=== PATIENT | female | born 1965 | race African-American/Black ===

== ENCOUNTER 2016-10-15 21:46 | Emergency (ER) | payer OTHER ==
[~2016-10-15] VITALS: Ht 167.6 cm; Wt 71.4 kg
[~2016-10-15 21:46] MED LIST: ALPRAZOLAM0.5 MG PO; ALTACE10 MG PO; AMLODIPINE BESY10 MG PO; ASPIR-LOW81 MG PO; ASPIRIN81 M1 PO; Aspirin Ec PO; BENZTROPINE MESY1 MG PO; CELEXA20 MG PO; CLONIDINE HCL0.2 MG PO; COMBIVENT RESPIM4 GM IH; COMBIVENT200 INHALA IH; CORTISPORIN-TC10 M1 LEFT EAR; CYCLOBENZAPRINE10 MG PO; DIABETES PILL; DULOXETINE HCL60 MG PO; EPZICOM1 TABLET; EPZICOM1 TABLET PO; Ecotrin PO; FAMOTIDINE20 MG PO; FLEXERIL10 MG PO; GLIPIZIDE-METF1 EACH PO; GLUCAGEN1 MG IM/SC; HUMALOG100 UNIT/1 SC; HUMALOG100 UNIT/2 SC; HUMALOG100 UNIT/2 SQ; HUMALOG100 UNITS/ SC; HUMULIN N100 UNIT/1 SC; HYDROCODON-ACE1 EAC8 PO; HYDROCODON-ACE1 EAC9 PO; INDERAL40 MG PO; ISENTRESS400 MG PO; LANTUS 3 M100 UNITS/ SC; LANTUS 3 M100 UNITS1 SC; LANTUS100 UNIT/1 SQ; LANTUS100 UNIT/2 SQ; LIPITOR10 MG PO; LOW DOSE ASPIRI81 M1 PO; MEDROL DOSEPAK4 MG PO; MIRTAZAPINE30 MG PO; MOBIC15 MG PO; NAPROSYN500 MG PO; NEURONTIN100 MG PO; NITROSTAT0.4 MG SL; NOVOLOG PE100 UNITS/ SC; QUETIAPINE FUM100 MG PO; QUETIAPINE FUMA25 MG PO; RAMIPRIL10 MG PO; TRUVADA1 TABLET PO; TYLENOL EXTRA500 MG PO; [UNRECOGNIZED DRUG - CODE] PO
[2016-10-15 22:07] LABS: HEMATOCRIT 33.5 % (36.0-46.0); MCH 27.1 PG (29.0-34.0); MCHC 33.4 G/DL (30.0-36.0); MCV 80.9 FL (83-99); MEAN PLAT.VOLUME 10.4 uM^3 (9.5-12.4); PLATELET COUNT 318 K/uL (156-360); RBC DIS.WIDTH-CV 13.5 % (11.8-14.6); RBC DIS.WIDTH-SD 38.2 % (39-53); RED BLOOD COUNT 4.14 M/uL (3.80-5.20); WHITE BLOOD COUNT 5.6 K/uL (4.1-10.2)
[2016-10-15 22:15] LABS: CHLORIDE 95 mEq/L (99-109); POTASSIUM 3.8 mEq/L (3.7-5.4); SODIUM 133 mEq/L (136-147)
[2016-10-15 22:18] LABS: ANION GAP 15 MEQ/L (2-14)
[2016-10-15 22:19] LABS: TOTAL BILIRUBIN 0.3 mg/dL (0.0-1.0)
[2016-10-15 22:21] LABS: ALKALINE PHOSPHATASE 88 IU/L (3-129); GFR ESTIMATE (CALCULATED) > 59 mL/min/
[2016-10-15 22:22] LABS: UREA NITROGEN (BUN) 13 mg/dL (9-23)
[2016-10-15 22:26] LABS: GLUCOSE 550 mg/dL (70-99)
[2016-10-15 22:32] LABS: QUANTITATIVE HCG < 4.0 MIU/ML
[2016-10-15 22:37] LABS: ADD MIUA? NO; BILIRUBIN NEGATIVE; BLOOD NEGATIVE; COLOR YELLOW ((YELLOW)); GLUCOSE (STRIP) >=1000; KETONES NEGATIVE; LEUKOCYTES NEGATIVE; NITRITE NEGATIVE; PROTEIN (STRIP) TRACE; SPECIFIC GRAVITY 1.043 (1.000-1.030); UCUL ADDED? NO; UROBILINOGEN 0.2 MG/DL (0.2-1.0)
[2016-10-16 01:13] LABS: POINT-OF-CARE METER ID UU14100415
[2016-10-16] MEDS ORDERED: CARAFATE1 GM PO (01:17)
[2016-10-16] MEDS ORDERED: ZOFRAN ODT8 MG PO (01:17)
[2016-10-16] MEDS ORDERED: PRILOSEC20 MG PO (01:17)
[2016-10-16 01:49] VITALS: BP 149/90
== END 2016-10-16 01:55 | disposition home or self-care (01) ==
LOC: EME 21:46
PROVIDERS: Emergency Medicine
DX: K29.70 Gastritis, unspecified, without bleeding (principal); E11.65 Type 2 diabetes mellitus with hyperglycemia; I10 Essential (primary) hypertension; Z21 Asymptomatic human immunodeficiency virus [HIV] infection status
CPT/HCPCS: 76705; 80053; 81003; 82948; 84702; 85027; 99281; 99285; J1170; J2405; J7030; S0028

== ENCOUNTER 2016-12-27 00:10 | Emergency (ER) | payer OTHER ==
[~2016-12-27] VITALS: Ht 167.6 cm; Wt 72.3 kg
[~2016-12-27 00:10] MED LIST changes: +CARAFATE1 GM PO; +PRILOSEC20 MG PO; +ZOFRAN ODT8 MG PO
[2016-12-27 00:51] LABS: HEMATOCRIT 32.3 % (36.0-46.0); MCH 26.2 PG (29.0-34.0); MCHC 31.6 G/DL (30.0-36.0); MEAN PLAT.VOLUME 10.5 uM^3 (9.5-12.4); PLATELET COUNT 260 K/uL (156-360); RBC DIS.WIDTH-CV 15.2 % (11.8-14.6); RBC DIS.WIDTH-SD 46.1 % (39-53); RED BLOOD COUNT 3.89 M/uL (3.80-5.20); WHITE BLOOD COUNT 4.6 K/uL (4.1-10.2)
[2016-12-27 01:01] LABS: CHLORIDE 104 mEq/L (99-109); POTASSIUM 3.5 mEq/L (3.7-5.4); SODIUM 138 mEq/L (136-147)
[2016-12-27 01:04] LABS: ANION GAP 9 MEQ/L (2-14)
[2016-12-27 01:07] LABS: GFR ESTIMATE (CALCULATED) > 59 mL/min/; UREA NITROGEN (BUN) 14 mg/dL (9-23)
[2016-12-27 01:13] LABS: TROP-I INTERPRETATION NEGATIVE; TROPONIN-I < 0.01 ng/mL (0.0-0.30)
[2016-12-27 01:31] LABS: GLUCOSE 274 mg/dL (70-99)
[2016-12-27 01:42] LABS: D-DIMER ELISA 0.44 mg/L FEU (< 0.57)
[2016-12-27] MEDS ORDERED: VENTOLIN HFA18 GM IH (02:29)
[2016-12-27] MEDS ORDERED: AZITHROMYCIN250 MG PO (02:29)
[2016-12-27 03:00] LABS: TROP-I INTERPRETATION NEGATIVE; TROPONIN-I < 0.01 ng/mL (0.0-0.30)
[2016-12-27 03:32] VITALS: BP 143/91
== END 2016-12-27 03:33 | disposition home or self-care (01) ==
LOC: EME 00:10
PROVIDERS: Emergency Medicine
DX: R07.9 Chest pain, unspecified (principal); J18.9 Pneumonia, unspecified organism; B20 Human immunodeficiency virus [HIV] disease; I10 Essential (primary) hypertension; M79.604 Pain in right leg; M79.605 Pain in left leg; R00.0 Tachycardia, unspecified; E11.9 Type 2 diabetes mellitus without complications; Z86.14 Personal history of Methicillin resistant Staphylococcus aureus infection
CPT/HCPCS: 71020; 80048; 84484; 85027; 85379; 93005; 99281; 99284

== ENCOUNTER 2017-01-24 21:19 | Emergency (ER) | payer OTHER ==
[~2017-01-24] VITALS: Ht 167.6 cm; Wt 75.7 kg
[~2017-01-24 21:19] MED LIST changes: +AZITHROMYCIN250 MG PO; +VENTOLIN HFA18 GM IH
[2017-01-24 22:04] LABS: MCH 26.2 PG (29.0-34.0); MCHC 31.5 G/DL (30.0-36.0); MCV 83.1 FL (83-99); PLATELET COUNT 302 K/uL (156-360); RBC DIS.WIDTH-CV 14.7 % (11.8-14.6); RBC DIS.WIDTH-SD 44.4 % (39-53); RED BLOOD COUNT 3.97 M/uL (3.80-5.20); WHITE BLOOD COUNT 7.1 K/uL (4.1-10.2)
[2017-01-24 22:13] LABS: CHLORIDE 107 mEq/L (99-109); POTASSIUM 3.6 mEq/L (3.7-5.4); SODIUM 142 mEq/L (136-147)
[2017-01-24 22:15] LABS: GLUCOSE 104 mg/dL (70-99)
[2017-01-24 22:16] LABS: ANION GAP 12 MEQ/L (2-14)
[2017-01-24 22:18] LABS: GFR ESTIMATE (CALCULATED) > 59 mL/min/
[2017-01-24 22:19] LABS: UREA NITROGEN (BUN) 17 mg/dL (9-23)
[2017-01-24 22:35] LABS: TROP-I INTERPRETATION NEGATIVE; TROPONIN-I < 0.01 ng/mL (0.0-0.30)
[2017-01-24] MEDS ORDERED: ATARAX,VISTARIL25 MG PO (23:04)
[2017-01-24 23:32] VITALS: BP 134/85
== END 2017-01-24 23:33 | disposition home or self-care (01) ==
LOC: EME → EDBD 21:19 → EME 23:33
PROVIDERS: Emergency Medicine
DX: E11.649 Type 2 diabetes mellitus with hypoglycemia without coma (principal); F31.9 Bipolar disorder, unspecified; K21.9 Gastro-esophageal reflux disease without esophagitis; J45.909 Unspecified asthma, uncomplicated; F41.9 Anxiety disorder, unspecified; R06.02 Shortness of breath; R07.9 Chest pain, unspecified; Z21 Asymptomatic human immunodeficiency virus [HIV] infection status; Z79.4 Long term (current) use of insulin
CPT/HCPCS: 71010; 80048; 84484; 85027; 93005; 99281; 99284; J2060

== ENCOUNTER 2017-03-11 02:28 | Emergency (ER) | payer OTHER ==
[~2017-03-11] VITALS: Ht 167.6 cm; Wt 74.8 kg
[~2017-03-11 02:28] MED LIST changes: +ATARAX,VISTARIL25 MG PO
[2017-03-11 02:57] LABS: HEMATOCRIT 28.9 % (36.0-46.0); MCH 26.5 PG (29.0-34.0); MCHC 31.8 G/DL (30.0-36.0); MCV 83.3 FL (83-99); MEAN PLAT.VOLUME 9.9 uM^3 (9.5-12.4); PLATELET COUNT 260 K/uL (156-360); RBC DIS.WIDTH-CV 14.5 % (11.8-14.6); RBC DIS.WIDTH-SD 43.8 % (39-53); RED BLOOD COUNT 3.47 M/uL (3.80-5.20); WHITE BLOOD COUNT 5.4 K/uL (4.1-10.2)
[2017-03-11 03:07] LABS: CHLORIDE 105 mEq/L (99-109); POTASSIUM 3.5 mEq/L (3.7-5.4); SODIUM 138 mEq/L (136-147)
[2017-03-11 03:09] LABS: GLUCOSE 177 mg/dL (70-99)
[2017-03-11 03:10] LABS: ANION GAP 10 MEQ/L (2-14)
[2017-03-11 03:13] LABS: GFR ESTIMATE (CALCULATED) > 59 mL/min/
[2017-03-11 03:14] LABS: UREA NITROGEN (BUN) 13 mg/dL (9-23)
[2017-03-11 03:17] LABS: TROP-I INTERPRETATION NEGATIVE; TROPONIN-I < 0.01 ng/mL (0.0-0.30)
[2017-03-11] MEDS ORDERED: FIORICET,ESG1 TABLET PO (05:19)
[2017-03-11 05:41] VITALS: BP 150/90
== END 2017-03-11 05:42 | disposition home or self-care (01) ==
LOC: EME 02:28
DX: I10 Essential (primary) hypertension (principal); R51 Headache; M79.89 Other specified soft tissue disorders; R00.0 Tachycardia, unspecified; E11.9 Type 2 diabetes mellitus without complications; Z79.84 Long term (current) use of oral hypoglycemic drugs; Z21 Asymptomatic human immunodeficiency virus [HIV] infection status; Z86.14 Personal history of Methicillin resistant Staphylococcus aureus infection
CPT/HCPCS: 70450; 71020; 80048; 83880; 84484; 85027; 93005; 99281; 99284

== ENCOUNTER 2017-07-19 23:25 | Emergency (ER) | payer OTHER ==
[~2017-07-19] VITALS: Ht 167.6 cm; Wt 79.8 kg
[~2017-07-19 23:25] MED LIST changes: +FIORICET,ESG1 TABLET PO
[2017-07-20 00:06] LABS: EOSINOPHIL (%) 0.5 % (0-5); EOSINOPHIL COUNT 0.1 K/uL (0-0.3); HEMATOCRIT 27.5 % (36.0-46.0); IMMATURE GRANULOCYTE (%) 0.5 % (0.0-0.7); IMMATURE GRANULOCYTE COUNT 0.1 K/uL; INSTRUMENT ABS NEUTROPHIL CT 12.2 K/uL; LYMPHOCYTE COUNT 0.7 K/uL (1.0-2.8); MCH 25.7 PG (29.0-34.0); MCHC 31.6 G/DL (30.0-36.0); MCV 81.1 FL (83-99); MEAN PLAT.VOLUME 9.9 uM^3 (9.5-12.4); MONOCYTE (%) 7.4 % (3-12); NEUTROPHIL (%) 86.2 % (45-76); NEUTROPHIL COUNT 12.2 K/uL (1.8-6.4); PLATELET COUNT 281 K/uL (156-360); RBC DIS.WIDTH-CV 14.9 % (11.8-14.6); RBC DIS.WIDTH-SD 44.8 % (39-53); RED BLOOD COUNT 3.39 M/uL (3.80-5.20); WHITE BLOOD COUNT 14.1 K/uL (4.1-10.2)
[2017-07-20 00:14] LABS: CHLORIDE 105 mEq/L (99-109); POTASSIUM 3.7 mEq/L (3.7-5.4); SODIUM 138 mEq/L (136-147)
[2017-07-20 00:16] LABS: GLUCOSE 241 mg/dL (70-99)
[2017-07-20 00:18] LABS: ANION GAP 12 MEQ/L (2-14); TOTAL BILIRUBIN 0.2 mg/dL (0.0-1.0)
[2017-07-20 00:20] LABS: ALKALINE PHOSPHATASE 58 IU/L (3-129); GFR ESTIMATE (CALCULATED) > 59 mL/min/
[2017-07-20 00:21] LABS: UREA NITROGEN (BUN) 16 mg/dL (9-23)
[2017-07-20 00:24] LABS: LIPASE 30 U/L (1.0-51.0)
[2017-07-20] MEDS ORDERED: ZOFRAN4 MG PO (02:10)
[2017-07-20 02:51] VITALS: BP 128/80
[2017-07-20 09:35] LABS: POINT-OF-CARE METER ID UU13113702
== END 2017-07-20 02:52 | disposition home or self-care (01) ==
LOC: EME → EDBD 23:25 → EME 07-20 02:52
PROVIDERS: Emergency Medicine
DX: K52.9 Noninfective gastroenteritis and colitis, unspecified (principal); E11.65 Type 2 diabetes mellitus with hyperglycemia; D64.9 Anemia, unspecified; E87.2 Acidosis; Z79.84 Long term (current) use of oral hypoglycemic drugs; J45.909 Unspecified asthma, uncomplicated; K21.9 Gastro-esophageal reflux disease without esophagitis; Z21 Asymptomatic human immunodeficiency virus [HIV] infection status; Z87.891 Personal history of nicotine dependence
CPT/HCPCS: 74177; 80053; 81003; 82948; 83605; 83690; 85025; 99281; 99285; J2405; J7030

== ENCOUNTER 2017-07-22 21:29 | Emergency (ER) | payer OTHER ==
[~2017-07-22] VITALS: Ht 167.6 cm; Wt 72.0 kg
[~2017-07-22 21:29] MED LIST changes: +ZOFRAN4 MG PO
[2017-07-22 22:26] LABS: HEMATOCRIT 26.8 % (36.0-46.0); MCH 25.6 PG (29.0-34.0); MCHC 31.7 G/DL (30.0-36.0); MCV 80.7 FL (83-99); MEAN PLAT.VOLUME 10.2 uM^3 (9.5-12.4); PLATELET COUNT 291 K/uL (156-360); RBC DIS.WIDTH-CV 14.8 % (11.8-14.6); RBC DIS.WIDTH-SD 43.8 % (39-53); RED BLOOD COUNT 3.32 M/uL (3.80-5.20); WHITE BLOOD COUNT 10.6 K/uL (4.1-10.2)
[2017-07-22 22:36] LABS: CHLORIDE 105 mEq/L (99-109); POTASSIUM 3.5 mEq/L (3.7-5.4); SODIUM 141 mEq/L (136-147)
[2017-07-22 22:38] LABS: GLUCOSE 160 mg/dL (70-99)
[2017-07-22 22:39] LABS: ANION GAP 12 MEQ/L (2-14)
[2017-07-22 22:40] LABS: TOTAL BILIRUBIN 0.2 mg/dL (0.0-1.0)
[2017-07-22 22:41] LABS: ALKALINE PHOSPHATASE 63 IU/L (3-129)
[2017-07-22 22:42] LABS: GFR ESTIMATE (CALCULATED) > 59 mL/min/
[2017-07-22 22:43] LABS: UREA NITROGEN (BUN) 14 mg/dL (9-23)
[2017-07-22 22:45] LABS: LIPASE 33 U/L (1.0-51.0)
[2017-07-22 22:47] LABS: TROP-I INTERPRETATION NEGATIVE; TROPONIN-I < 0.01 ng/mL (0.0-0.30)
[2017-07-22 22:51] LABS: QUANTITATIVE HCG < 4.0 MIU/ML
[2017-07-23] MEDS ORDERED: FLAGYL500 MG PO (00:29)
[2017-07-23] MEDS ORDERED: ZOFRAN4 MG PO (00:29)
[2017-07-23] MEDS ORDERED: CIPRO500 MG PO (00:29)
[2017-07-23 01:15] VITALS: BP 160/87
[2017-07-23 01:58] LABS: IRON 15 MCG/DL (35-150)
[2017-07-23 08:21] LABS: FERRITIN 6 NG/ML (10-291)
== END 2017-07-23 01:16 | disposition home or self-care (01) ==
LOC: EME 21:29
PROVIDERS: Emergency Medicine
DX: K52.9 Noninfective gastroenteritis and colitis, unspecified (principal); R10.11 Right upper quadrant pain; E11.9 Type 2 diabetes mellitus without complications; Z79.84 Long term (current) use of oral hypoglycemic drugs; N28.1 Cyst of kidney, acquired; Z98.51 Tubal ligation status; M47.817 Spondylosis without myelopathy or radiculopathy, lumbosacral region; D64.9 Anemia, unspecified; I10 Essential (primary) hypertension; B20 Human immunodeficiency virus [HIV] disease; Z86.14 Personal history of Methicillin resistant Staphylococcus aureus infection; Z87.891 Personal history of nicotine dependence
CPT/HCPCS: 74176; 76705; 80053; 81003; 82728; 83540; 83605; 83690; 84466; 84484; 84702; 85027; 86850; 86900; 86901; 93005; 99281; 99284; J2270; J2405; J7030

== ENCOUNTER 2017-08-30 02:46 | Emergency (ER) | payer OTHER ==
[~2017-08-30] VITALS: Ht 167.6 cm; Wt 71.1 kg
[~2017-08-30 02:46] MED LIST changes: +CIPRO500 MG PO; +FLAGYL500 MG PO
[2017-08-30 04:00] LABS: HEMATOCRIT 25.2 % (36.0-46.0); MCH 26.3 PG (29.0-34.0); MCHC 32.5 G/DL (30.0-36.0); MCV 80.8 FL (83-99); PLATELET COUNT 213 K/uL (156-360); RBC DIS.WIDTH-CV 16.9 % (11.8-14.6); RBC DIS.WIDTH-SD 49.6 % (39-53); RED BLOOD COUNT 3.12 M/uL (3.80-5.20); WHITE BLOOD COUNT 5.1 K/uL (4.1-10.2)
[2017-08-30 04:11] LABS: CHLORIDE 107 mEq/L (99-109); POTASSIUM 3.6 mEq/L (3.7-5.4); SODIUM 138 mEq/L (136-147)
[2017-08-30 04:13] LABS: GLUCOSE 208 mg/dL (70-99)
[2017-08-30 04:14] LABS: ANION GAP 9 MEQ/L (2-14)
[2017-08-30 04:16] LABS: GFR ESTIMATE (CALCULATED) > 59 mL/min/
[2017-08-30 04:17] LABS: UREA NITROGEN (BUN) 18 mg/dL (9-23)
[2017-08-30 04:19] LABS: ADD MIUA? YES; BILIRUBIN NEGATIVE; BLOOD NEGATIVE; COLOR YELLOW ((YELLOW)); GLUCOSE (STRIP) >=500; KETONES NEGATIVE; LEUKOCYTES MODERATE; NITRITE NEGATIVE; PROTEIN (STRIP) 100; SPECIFIC GRAVITY 1.025 (1.000-1.030); UROBILINOGEN 0.2 MG/DL (0.2-1.0)
[2017-08-30 04:37] LABS: BACTERIA 1+ /HPF; EPITHELIAL CELLS 2+ /HPF; MUCUS 4+ /LPF; UCUL ADDED? YES; WHITE BLOOD CELLS 20-30 /HPF (0-5)
[2017-08-30] MEDS ORDERED: BACTRIM,SEPT1 TABLET PO (04:42)
[2017-08-30 05:17] VITALS: BP 135/89
== END 2017-08-30 05:18 | disposition home or self-care (01) ==
LOC: EME 02:46
PROVIDERS: Physician Assistant
DX: M54.9 Dorsalgia, unspecified (principal); N39.0 Urinary tract infection, site not specified; E11.9 Type 2 diabetes mellitus without complications; K21.9 Gastro-esophageal reflux disease without esophagitis; J45.909 Unspecified asthma, uncomplicated; B20 Human immunodeficiency virus [HIV] disease; D64.9 Anemia, unspecified; F31.9 Bipolar disorder, unspecified; F41.9 Anxiety disorder, unspecified; Z79.84 Long term (current) use of oral hypoglycemic drugs; Z87.891 Personal history of nicotine dependence
CPT/HCPCS: 80048; 81003; 85027; 87086; 99281; 99284; J1885

== ENCOUNTER 2017-12-17 20:18 | Emergency (ER) | payer OTHER ==
[~2017-12-17] VITALS: Ht 167.6 cm; Wt 72.9 kg
[~2017-12-17 20:18] MED LIST changes: +BACTRIM,SEPT1 TABLET PO
[2017-12-17 23:36] VITALS: BP 138/84
== END 2017-12-17 23:40 | disposition home or self-care (01) ==
LOC: EME 20:18
DX: S90.425A Blister (nonthermal), left lesser toe(s), initial encounter (principal); E11.9 Type 2 diabetes mellitus without complications; I10 Essential (primary) hypertension; Z79.4 Long term (current) use of insulin
CPT/HCPCS: 73630; 99281; 99283

== ENCOUNTER 2018-01-29 23:26 | Emergency (ER) | payer OTHER ==
[~2018-01-29] VITALS: Ht 167.6 cm; Wt 70.9 kg
[2018-01-29 23:30] VITALS: BP 152/95
== END 2018-01-30 00:23 | disposition home or self-care (01) ==
LOC: EME 23:26
DX: G89.18 Other acute postprocedural pain (principal); M79.672 Pain in left foot; Z98.890 Other specified postprocedural states
CPT/HCPCS: 99281; 99284

== ENCOUNTER 2018-02-25 01:26 | Emergency (ER) | payer OTHER ==
[~2018-02-25] VITALS: Ht 167.6 cm; Wt 69.9 kg
[2018-02-25 02:43] LABS: BASOPHIL (%) 0.6 % (0-1); EOSINOPHIL COUNT 0.2 K/uL (0-0.3); HEMATOCRIT 28.8 % (36.0-46.0); HEMOGLOBIN 9.9 G/DL (11.9-15.5); IMMATURE GRANULOCYTE (%) 0.4 % (0.0-0.7); LYMPHOCYTE COUNT 1.5 K/uL (1.0-2.8); MCH 32.2 PG (29.0-34.0); MCHC 34.4 G/DL (30.0-36.0); MCV 93.8 FL (83-99); MONOCYTE COUNT 0.7 K/uL (0-0.8); NEUTROPHIL COUNT 2.4 K/uL (1.8-6.4); PLATELET COUNT 198 K/uL (156-360); RBC DIS.WIDTH-CV 13.6 % (11.8-14.6); RBC DIS.WIDTH-SD 46.4 % (39-53); RED BLOOD COUNT 3.07 M/uL (3.80-5.20); WHITE BLOOD COUNT 4.8 K/uL (4.1-10.2)
[2018-02-25 02:58] LABS: ALBUMIN 3.8 g/dL (3.2-4.8); CHLORIDE 107 mEq/L (99-109); POTASSIUM 3.6 mEq/L (3.7-5.4); SODIUM 139 mEq/L (136-147)
[2018-02-25 03:00] LABS: GLUCOSE 169 mg/dL (70-99)
[2018-02-25 03:01] LABS: TOTAL PROTEIN 7.3 g/dL (6.4-8.3)
[2018-02-25 03:02] LABS: TOTAL BILIRUBIN 0.3 mg/dL (0.0-1.0)
[2018-02-25 03:04] LABS: ALKALINE PHOSPHATASE 47 IU/L (3-129); CREATININE 0.8 mg/dL (0.6-1.3); GFR ESTIMATE (CALCULATED) > 59 mL/min/
[2018-02-25 03:05] LABS: UREA NITROGEN (BUN) 17 mg/dL (9-23)
[2018-02-25 03:06] LABS: AST (GOT) 15 IU/L (2-34); DIRECT BILIRUBIN 0.2 mg/dL (0.0-0.3)
[2018-02-25 03:07] LABS: ALT (GPT) 10 IU/L (3-49)
[2018-02-25 03:08] LABS: TROP-I INTERPRETATION NEGATIVE; TROPONIN-I < 0.01 ng/mL (0.0-0.30)
[2018-02-25 05:45] LABS: TROP-I INTERPRETATION NEGATIVE; TROPONIN-I < 0.01 ng/mL (0.0-0.30)
[2018-02-25 06:04] VITALS: BP 156/90
== END 2018-02-25 06:08 | disposition home or self-care (01) ==
LOC: EME 01:26
PROVIDERS: Emergency Medicine
DX: R07.9 Chest pain, unspecified (principal); R06.02 Shortness of breath; B20 Human immunodeficiency virus [HIV] disease; I10 Essential (primary) hypertension; E11.9 Type 2 diabetes mellitus without complications; Z79.84 Long term (current) use of oral hypoglycemic drugs
CPT/HCPCS: 71046; 71275; 80048; 80076; 82948; 83605; 83880; 84484; 85025; 93005; 99281; 99285; J1885

== ENCOUNTER 2018-04-01 20:35 | Emergency (ER) | payer OTHER ==
[~2018-04-01] VITALS: Ht 167.6 cm; Wt 70.1 kg
[2018-04-01 23:51] VITALS: BP 136/81
== END 2018-04-01 23:52 | disposition home or self-care (01) ==
LOC: EME 20:35
DX: S90.415A Abrasion, left lesser toe(s), initial encounter (principal); M25.572 Pain in left ankle and joints of left foot; W22.09XA Striking against other stationary object, initial encounter; Y92.480 Sidewalk as the place of occurrence of the external cause; E11.9 Type 2 diabetes mellitus without complications
CPT/HCPCS: 73610; 73630; 99281; 99284